=== PATIENT | female | born 1985 | race African-American/Black ===

== ENCOUNTER 2019-03-31 08:18 | Inpatient (IN) | payer SELFPAY ==
[~2019-03-31] VITALS: Ht 160 cm; Wt 90.7 kg
[2019-03-31 09:17] LABS: BASOPHILS 0.3 % (0-2); EOSINOPHILS 1.2 % (0-7); HEMATOCRIT 37.5 % (36.0-48.0); HEMOGLOBIN 12.1 g/dL (12-16); IMMATURE GRANULOCYTES 0.3 % (0-5); LYMPHOCYTES 27.8 % (15-50); MCH 27.8 pg (26.0-34.0); MCHC 32.3 g/dL (31.0-37.0); MONOCYTES 7.6 % (2-11); NEUTROPHILS 62.8 % (40-80); PLATELET COUNT 345 10x3/uL (130-400); RBC 4.36 10x6/uL (4.00-5.40); RDW 13.3 % (11.5-14.5); WBC 11.9 10x3/uL (4.8-10.8)
[2019-03-31 09:20] LABS: APPEARANCE CLEAR (CLEAR); COLOR YELLOW (YELLOW); SPECIFIC GRAVITY 1.015 (1.005-1.020)
[2019-03-31 09:21] LABS: BILIRUBIN NEGATIVE (NEGATIVE); GLUCOSE NEGATIVE (NEGATIVE); KETONE NEGATIVE (NEGATIVE); NITRITE NEGATIVE (NEGATIVE); PROTEIN 3+ mg/dL (NEGATIVE); UROBILINOGEN NORMAL (NORMAL)
[2019-03-31 09:23] LABS: BACTERIA FEW /hpf (NEGATIVE); EPITHELIAL CELLS 0-5 /hpf (0-5); RED CELLS - URINE 0-5 /hpf (0-5); WHITE CELLS - URINE 0-5 /hpf (NEGATIVE)
[2019-03-31 09:28] LABS: CALC OSMOLALITY 279 mosm/kg (275-300); CALCIUM 8.5 mg/dL (8.5-10.1); CARBON DIOXIDE 28.5 mmol/L (21.0-32.0); CHLORIDE - SERUM 101 mmol/L (98-107); CREATININE - SERUM 0.8 mg/dL (0.6-1.3); GLUCOSE 109 mg/dL (74-106); POTASSIUM - SERUM 3.5 mmol/L (3.5-5.1); SODIUM 139 mmol/L (136-145); UREA NITROGEN 14 mg/dL (7-18); eGFR NON AFRICAN AMERICAN 86 mL/min (90-120)
[2019-03-31 09:29] LABS: HCG SERUM NEGATIVE (NEGATIVE)
[2019-03-31 09:45] LABS: ALBUMIN 3.6 g/dL (3.4-5.0); ALKALINE PHOSPHATASE 62 U/L (46-116); ALT (SGPT) 162 U/L (10-68); AMYLASE - SERUM 27 U/L (25-115); BILIRUBIN - TOTAL 0.54 mg/dL (0.2-1.3); LIPASE 65 U/L (73-393); PROTEIN - SERUM 6.6 g/dL (6.4-8.2)
--- NOTE | 2019-03-31 10:00 | NUR ---
PATIENT UPDATED ON PLAN OF CARE. NO NEEDS NOTED. WILL CONTINUE TO MONITOR
[2019-03-31 11:00] LABS: CKMB 1.6 U/L (0.0-3.6); CREATINE KINASE 242 UL (21-215); TROPONIN-I 0.035 ng/mL (0.000-0.060)
--- NOTE | 2019-03-31 11:55 | NUR ---
ULTRASOUND AT PATIENT'S BEDSIDE.
--- NOTE | 2019-03-31 12:45 | NUR ---
NEW PATIENT ADMIT FROM ER VIA WC. PATIENT IS ACCOMPANIED BY HOSPITAL STAFF AND FAMILY MEMBERS. PATIENT HAS IV TO L WRIST 22 G WITH ZITHROMAX INFUSING. PATIENT DENIES ANY NEEDS OR PAIN. ASSESSMENT COMPLETED . RAJESH DAY IN ROOM NEW ORDERS RECEIVED. WILL CONTINUE WITH PLAN OF CARE. SR UP X 2 BED IN LOW POSITION AND CALL LIGHT IN REACH.
[2019-03-31 13:13] VITALS: BP 165/112; BMI 35.5
[2019-03-31] MEDS ORDERED: TRAZODONE HCL150 MG PO (13:48)
[2019-03-31 14:13] LABS: CHOL - HDL RATIO 6.9 ratio (2.3-4.1); LDL-HDL RATIO 4.6 ratio (1.5-3.5)
--- NOTE | 2019-03-31 15:01 | NUR ---
PATIENT RESTING COMFORTABLY. WILL CONTINUE TO MONITOR.
--- NOTE | 2019-03-31 19:35 | NUR ---
RECEIVED REPORT, WILL ASSUME CARE OF PT, DR. JOHNSON IN ROOM, PT DENIES ANY NEEDS AT THIS TIME, BED IS LOW, CALL LIGHT IN REACH, WILL CONTINUE PLAN OF CARE
[2019-03-31 20:00] VITALS: BP 151/104
[2019-04-01] VITALS: BP 114/76
--- NOTE | 2019-04-01 03:05 | NUR ---
I have reviewed this patient and I concur with the Shift Assessment completed by the Licensed Practical Nurse today this shift.
[2019-04-01 04:00] VITALS: BP 140/86
[2019-04-01 05:58] LABS: ALBUMIN 3.2 g/dL (3.4-5.0); ALKALINE PHOSPHATASE 53 U/L (46-116); ALT (SGPT) 147 U/L (10-68); BILIRUBIN - TOTAL 0.47 mg/dL (0.2-1.3); CARBON DIOXIDE 27.5 mmol/L (21.0-32.0); CHLORIDE - SERUM 103 mmol/L (98-107); CREATININE - SERUM 0.7 mg/dL (0.6-1.3); POTASSIUM - SERUM 3.8 mmol/L (3.5-5.1); PROTEIN - SERUM 6.3 g/dL (6.4-8.2); SODIUM 139 mmol/L (136-145); UREA NITROGEN 11 mg/dL (7-18); eGFR NON AFRICAN AMERICAN > 90 mL/min (90-120)
[2019-04-01 06:00] LABS: CALC OSMOLALITY 280 mosm/kg (275-300); GLUCOSE 169 mg/dL (74-106)
[2019-04-01 06:06] LABS: BASOPHILS 0.1 % (0-2); EOSINOPHILS 0 % (0-7); HEMATOCRIT 36.8 % (36.0-48.0); HEMOGLOBIN 11.8 g/dL (12-16); IMMATURE GRANULOCYTES 0.4 % (0-5); LYMPHOCYTES 17.2 % (15-50); MCH 27.9 pg (26.0-34.0); MCHC 32.1 g/dL (31.0-37.0); MEAN PLATELET VOLUME 10.5 fL (7.4-10.4); MONOCYTES 4.3 % (2-11); PLATELET COUNT 359 10x3/uL (130-400); RBC 4.23 10x6/uL (4.00-5.40); RDW 13.7 % (11.5-14.5); WBC 13.5 10x3/uL (4.8-10.8)
--- NOTE | 2019-04-01 07:14 | NUR ---
REPORT RECEVEDE FROM MANAGER PLANNING AND PATIENT CARE ASSUMED. PATIENT LAYING IN BED ON BACK AWAKE, ALERT AND ORIENTED X 4. PATIENT DENIES ANY NEEDS OR PAIN. FAMILY AT BS,. WILL CONTINUE TO MONITOR. SR UP X 2 BED IN LOW POSITION AND CALL LIGHT IN REACH.
[2019-04-01 09:04] VITALS: BP 156/104
--- NOTE | 2019-04-01 11:30 | NUR ---
IV INFILLTRATED. DCD IV WITHOUT DIFFICULTY WITH ENTIRE CATHETER INTACT. DRSG APPLIED
--- NOTE | 2019-04-01 13:03 | NUR ---
22 GAUGE IV PLACED TO RIGHT HAND X 1 STICK. GOOD BLOOD RETURN, EASY FLUSH. PATIENT TOLERATED IV PLACEMENT WELL. TAPED, DATED AND SECURED.
[2019-04-01 14:10] VITALS: BP 128/83
--- NOTE | 2019-04-01 15:52 | NUR ---
CALLED TO PATIENTS ROOM. SPOKE WITH FAMILY MEMBERS AND PATIENT. ANSWERED QUESTIONS TO SATISFACTION OF PATIENT AND FAMILY MEMBERS. PATIENT DENIES ANY NEEDS OR PAIN. WILL CONTINUE TO MONITOR. SR UP X 2 BED IN LOW POSITION AND CALL LIGHT IN REACH.
--- NOTE | 2019-04-01 17:45 | NUR ---
PATIENT RESTING COMFORTABLY. PATIENT IS STABLE AND VSS. WILL CONTINUE TO MONITOR. SR UP X 2 BED IN LOW POSITION AND CALL LIGHT IN REACH.
--- NOTE | 2019-04-01 19:26 | NUR ---
INITIAL ROUNDS COMPLETED. PT DORA NAYLOR. FAMILY AT BEDSIDE.
[2019-04-01 20:00] VITALS: BP 128/92
--- NOTE | 2019-04-01 22:23 | NUR ---
ASSESSMENT COMPLETED AT 1955 HRS. VSS. SR PER CMHR 100. ALERT AND ORIENTED TO PERSON, PLACE AND TIME. VALVERDE. IV TO R HAND SL. LUNGS DIMINISHED IN BASES BILAT. TYENOL 650MG PO GIVEN FOR C/O GENERALIZED DISCOMFORT. PT CURRENTLY RESTING WITH EYES CLOSED. RESP EVEN AND REGULAR. SR UP X2, CALL LIGHT WITHIN REACH.
[2019-04-01 23:00] VITALS: BP 120/72
--- NOTE | 2019-04-01 23:50 | NUR ---
PT RESTING WITH EYES CLOSED. RESP EVEN AND REGULAR. SR UP X2, CALL LIGHT WITHIN REACH.
--- NOTE | 2019-04-02 01:46 | NUR ---
PT RESTING WITH EYES CLOSED. RESP EVEN AND REGULAR. SR UP X2, CALL LIGHT WITHIN REACH AND SPOUSE AT BEDSIDE.
--- NOTE | 2019-04-02 03:12 | NUR ---
PT RESTING WITH EYES CLOSED. RESP EVEN AND REGULAR. SR UP X2, CALL LIGHT WITHIN REACH.
[2019-04-02 04:00] VITALS: BP 123/89
[2019-04-02 05:07] LABS: BASOPHILS 0.2 % (0-2); HEMATOCRIT 37.4 % (36.0-48.0); HEMOGLOBIN 11.8 g/dL (12-16); IMMATURE GRANULOCYTES 0.3 % (0-5); LYMPHOCYTES 33.4 % (15-50); MCH 27.7 pg (26.0-34.0); MCHC 31.6 g/dL (31.0-37.0); MCV 87.8 fL (80.0-100.0); MEAN PLATELET VOLUME 10.4 fL (7.4-10.4); MONOCYTES 7.9 % (2-11); NEUTROPHILS 56.2 % (40-80); PLATELET COUNT 324 10x3/uL (130-400); RBC 4.26 10x6/uL (4.00-5.40); RDW 13.9 % (11.5-14.5); WBC 12.7 10x3/uL (4.8-10.8)
--- NOTE | 2019-04-02 05:12 | NUR ---
TYLENOL 650MG PO GIVEN FORC/O BACK PAIN. VS THROUGHOUT NIGHT. SR/ST PER CM. PT RESTED WELL DURING SHIDT NEEDS MET; WILL CONTNUE TO MONITOR.
[2019-04-02 05:45] LABS: ALKALINE PHOSPHATASE 52 U/L (46-116); BILIRUBIN - TOTAL 0.33 mg/dL (0.2-1.3); CARBON DIOXIDE 28.1 mmol/L (21.0-32.0); CHLORIDE - SERUM 102 mmol/L (98-107); CREATININE - SERUM 0.8 mg/dL (0.6-1.3); GLUCOSE 127 mg/dL (74-106); POTASSIUM - SERUM 3.6 mmol/L (3.5-5.1); SODIUM 138 mmol/L (136-145); eGFR NON AFRICAN AMERICAN 86 mL/min (90-120)
[2019-04-02 05:48] LABS: ALT (SGPT) 198 U/L (10-68); CALC OSMOLALITY 279 mosm/kg (275-300); UREA NITROGEN 18 mg/dL (7-18)
--- NOTE | 2019-04-02 07:10 | NUR ---
RECIEVE REPORT. ALERT AND ORIENTED X4. SITTING UP IN BED. SCDs ON. SINUS RYTHM 98 ON TELEMETRY. DENIES ANY NEEDS AT THIS TIME. CONTINUE PLAN OF CARE AND SAFETY PRECAUTIONS.
[2019-04-02 08:45] VITALS: BP 134/102
[2019-04-02 13:09] VITALS: BP 111/77
--- NOTE | 2019-04-02 17:48 | NUR ---
ALERT AND ORIENTED X4. SITTING UP IN BED. FAMILY AT BEDSIDE. SINUS RYTHM ON TELEMETRY. DENIES ANY NEEDS AT THIS TIME. CONTINUE PLAN OF CARE AND SAFETY PRECAUTIONS.
[2019-04-02 17:57] VITALS: BP 118/73
--- NOTE | 2019-04-02 19:20 | NUR ---
RECEIVED REPORT, WILL ASSUME CARE OF PT, DENIES ANY NEEDS, BED IS LOW, SRX2, CALL LIGHT IN REACH, FAMILY AT BEDSIDE, WILL CONTINUE PLAN OF CARE
[2019-04-02 20:00] VITALS: BP 104/76
[2019-04-03 00:23] VITALS: BP 134/74
--- NOTE | 2019-04-03 02:54 | NUR ---
I have reviewed this patient and I concur with the Shift Assessment completed by the Licensed Practical Nurse today this shift.
[2019-04-03 04:00] VITALS: BP 111/81
[2019-04-03 06:34] LABS: BASOPHILS 0.2 % (0-2); EOSINOPHILS 2.6 % (0-7); HEMATOCRIT 38.1 % (36.0-48.0); HEMOGLOBIN 12.1 g/dL (12-16); IMMATURE GRANULOCYTES 0.2 % (0-5); LYMPHOCYTES 37.5 % (15-50); MCH 27.8 pg (26.0-34.0); MCHC 31.8 g/dL (31.0-37.0); MCV 87.4 fL (80.0-100.0); MEAN PLATELET VOLUME 10.8 fL (7.4-10.4); MONOCYTES 10.9 % (2-11); NEUTROPHILS 48.6 % (40-80); PLATELET COUNT 341 10x3/uL (130-400); RBC 4.36 10x6/uL (4.00-5.40); RDW 13.8 % (11.5-14.5); WBC 12.2 10x3/uL (4.8-10.8)
[2019-04-03 06:47] LABS: ALKALINE PHOSPHATASE 49 U/L (46-116); ALT (SGPT) 175 U/L (10-68); BILIRUBIN - TOTAL 0.22 mg/dL (0.2-1.3); CALC OSMOLALITY 279 mosm/kg (275-300); CALCIUM 8.3 mg/dL (8.5-10.1); CHLORIDE - SERUM 103 mmol/L (98-107); CREATININE - SERUM 0.8 mg/dL (0.6-1.3); GLUCOSE 124 mg/dL (74-106); MAGNESIUM - SERUM 2.1 mg/dL (1.8-2.4); POTASSIUM - SERUM 3.4 mmol/L (3.5-5.1); PROTEIN - SERUM 5.9 g/dL (6.4-8.2); SODIUM 139 mmol/L (136-145); UREA NITROGEN 15 mg/dL (7-18); eGFR NON AFRICAN AMERICAN 86 mL/min (90-120)
[2019-04-03 10:35] VITALS: BP 132/103
[2019-04-03 12:47] VITALS: BP 102/68
[2019-04-03 15:03] VITALS: Ht 160 cm; Wt 90.7 kg
[2019-04-03] MEDS ORDERED: ZITHROMAX500 MG PO (15:03)
[2019-04-03] MEDS ORDERED: OMNICEF300 MG PO (15:03)
[2019-04-03] MEDS ORDERED: LISINOPRIL10 MG PO (15:04)
[2019-04-03] MEDS ORDERED: COREG12.5 MG PO (15:04)
[2019-04-03] MEDS ORDERED: PROTONIX40 MG PO (15:04)
[2019-04-03] MEDS ORDERED: LASIX40 MG PO (15:04)
[2019-04-03] MEDS ORDERED: K-DUR20 MEQ PO (15:05)
[2019-04-03] MEDS ORDERED: PRAVACHOL20 MG PO (15:05)
--- NOTE | 2019-04-03 15:25 | NUR ---
NO FLU SHOT GIVEN PATIENT WAS ADMITTED FOR PNEUMONIA AND GOING HOME ON ORAL ANTIBIOTICS.
[2019-04-03 16:40] VITALS: BP 121/85
--- NOTE | 2019-04-03 17:01 | NUR ---
ALERT AND ORIENTED X4. SITTING UP IN BED. WAITING FOR WALK STUDY EVAL TO BE DONE. DENIES ANY NEEDS AT THIS TIME. CONTINUE PLAN OF CARE AND SAFETY PRECAUTIONS.
--- NOTE | 2019-04-03 17:02 | MORECARE ---
CASE MANAGEMENT DISCHARGE SUMMARY PATIENT: NICKOLAS THOMAS UNIT: [id number] ADM DATE: 03/31/19 AGE: 34 : [birth year] SEX: F ROOM/BED: D.9648 AUTHOR: JOSE F HILTON PHYSICIAN: REFERRING PHYSICIAN: LUCRECIA MURRIETA DO DATE OF SERVICE: 04/03/19 Discharge Plan Patient Name: NICKOLAS THOMAS [facility] [facility] 1985 Planned Disposition: Home Anticipated Discharge Date: 04/04/19 Discharge Date: Expected LOS: 4 Initial Reviewer: [email or web address] Initial Review Date: 03/31/2019 Generated: 04/03/19 6:02 pm DCPIA - Discharge Planning Initial Assessment Updated by [email or web address]: Bobby Best on 04/03/19 5:01 pm * Is the patient Alert and Oriented? Yes * How many steps to enter\exit or inside your home? * PCP NONE, [facility] REF[facility] * [facility] DISCOUNT CARD PROVIDED * Preadmission Environment Home with Family * ADLs Independent * Equipment None * Other Equipment NO MEDICAL EQUIPMENT PROVIDER PREFERENCE * List name and contact numbers for known caregivers / representatives who currently or will assist patient after discharge: PAPO THOMAS, SPOUSE, * Verbal permission to speak to the caregivers and representatives has been obtained from the patient. N/A * Community resources currently utilized None * Please name any agencies selected above. NONE * Additional services required to return to the preadmission environment? No * Can the patient safely return to the preadmission environment? Yes * Has this patient been hospitalized within the prior 30 days at any hospital? No Patient Name: NICKOLAS THOMAS Page [phone] at 1702 All edits/amendments must be made on the electronic document DICTATION DATE: 04/03/191701 HAIRSPRING SETTER: KATHERINE 04/03/191701 RPT#: [id number] DC DATE: STATUS: ADM IN [facility] [address] [place] [address] END OF REPORT
--- NOTE | 2019-04-03 17:11 | MORECARE ---
CASE MANAGEMENT DISCHARGE SUMMARY PATIENT: NICKOLAS THOMAS UNIT: [id number] ADM DATE: 03/31/19 AGE: 34 : 84 SEX: F ROOM/BED: D.3092 AUTHOR: LIDA,DOC PHYSICIAN: REFERRING PHYSICIAN: LUCRECIA MURRIETA DO DATE OF SERVICE: 04/03/19 Discharge Plan Patient Name: NICKOLAS THOMAS Facility: [facility]:[place] : 1985 Planned Disposition: Home Anticipated Discharge Date: 04/04/19 Discharge Date: Expected LOS: 4 Initial Reviewer: [email or web address] Initial Review Date: 03/31/2019 Generated: 04/03/19 6:11 pm Comments DCP- Discharge Planning Updated by [email or web address]: Bobby Best on 04/03/19 4:[address] Patient Name: NICKOLAS THOMAS Admission Status: ER Accout number: [id number] Admission Date: 03-31-2019 : 1985 Admission Diagnosis: Attending: LUCRECIA MURRIETA Current LOS: 3 Anticipated DC Date: 04-04-2019 Planned Disposition: Home Primary Insurance: UNINSURED DISCOUNT PLAN Discharge Planning Comments: CM MET WITH PT IN ROOM TO DISCUSS DISCHARGE PLANNING AND NEEDS. PT REPORTS LIVING AT HOME INDEPENDENTLY WITH HER SPOUSE. PT HAS NO MEDICAL EQUIPMENT AND NO OUTSIDE SERVICES ASSISTING IN THE HOME. CM DISCUSSED AVAILABILITY OF HOME HEALTH, REHAB SERVICES AND MEDICAL EQUIPMENT. PT DENIES DISCHARGE NEEDS, REPORTS HER SPOUSE WILL PICK HER UP FOR DISCHARGE HOME TODAY. PT HAS MET WITH [employer] AND WAS INFORMED SHE WAS OVER INCOME FOR MEDICAID. CM DISCUSSED HEALTHCARE.GOV / AFFORDABLE HEALTHCARE FOR INSURANCE EXPLORATION. [facility] REFERRED FOR PRIMARY CARE. CM PROVIDED LIST FOR [facility] MEDICATION[facility] AND [facility] CARD. CM NOTIFIED CAREER COORDINATOR NURSE. CM LATER INFORMED THAT PT HAS ORDER FOR HOME AND PORTABLE OXYGEN. CM REVIEWED CHART, OBTAINED ORDER FOR OXYGEN TESTING, NOTIFIED RESPIRATORY THERAPIST DEANDRE VIA PHONE. PT SIGNED CONSENT FOR NO PROVIDER PREFERENCE. CM CALLED [facility], [facility] AND [facility]. CM DISCUSSED WITH PT WHO ASKED ABOUT PRICES. CM PROVIDED PRICES: - [facility] WILL NOT DO SALDIVAR OXYGEN SET UP. - [facility] $172.65 HOME AND PORTABLE, CREDIT OR DEBIT CARD - [facility] $60 CONCENTRATOR, $5 PER PORTABLE AND $100 REFUNDABLE DEPOSIT, SALDIVAR OR CARD - [facility] $50 CONCENTRATOR, $10 PER PORTABLE, CREDIT OR DEBIT CARD CM PROVIDED COSTS INFORMATION TO PT WHO WILL DISCUSS WITH FAMILY REGARDING COSTS. CM WAITING OXYGEN TESTING RESULTS TO DETERMINE NEED AND FOR PT TO DECIDE IF SHE WILL PAY FOR OXYGEN WELL PROVIDER CHOICE. CM NOTIFIED ER CM YODER. MAXILLOFACIAL PROSTHODONTIST TO NOTIFY ER CM WHEN OXYGEN TESTING IS COMPLETED. Webbing Weaver: Bobby Best DCPIA - Discharge Planning Initial Assessment Updated by [email or web address]: Bobby Best on 04/03/19 5:01 pm * Is the patient Alert and Oriented? Yes * How many steps to enter\exit or inside your home? * PCP NONE, [facility] REF[facility] * [facility] DIS[facility] C[facility] PROVIDED * Preadmission Environment Home with Family * ADLs Independent * Equipment None * Other Equipment NO MEDICAL EQUIPMENT PROVIDER PREFERENCE * List name and contact numbers for known caregivers / representatives who currently or will assist patient after discharge: PAPO THOMAS, SPOUSE, * Verbal permission to speak to the caregivers and representatives has been obtained from the patient. N/A * Community resources currently utilized None * Please name any agencies selected above. NONE * Additional services required to return to the preadmission environment? No * Can the patient safely return to the preadmission environment? Yes * Has this patient been hospitalized within the prior 30 days at any hospital? No Coverage Notice Reviewer: [id number] - Bobby Best Notice Issued Date-Time: 04/03/2019 16:10 Notice Type: Patient Choice Letter Notice Delivered To: Patient Relationship to Patient: Production Leader Name: Delivery Method: HAND - Hand Delivered Carley Days: Prior Verbal Notification: Recipient Understood Notice: Yes Recipient Signature: Yes Med Rec Note Co-signed by Attending: Coverage Notice Comment: NO MEDICAL EQUIPMENT PROVIDER PREFERENCE Last DP export: 04/03/19 4:02 p Patient Name: NICKOLAS THOMAS Page [phone] at 1711 All edits/amendments must be made on the electronic document DICTATION DATE: 04/03/191710 POLICE STENOGRAPHER: KATHERINE 04/03/191710 RPT#: [id number] DC DATE: STATUS: ADM IN [facility] [address] [place] [id number] END OF REPORT
--- NOTE | 2019-04-03 19:00 | NUR ---
EVENING ROUNDS COMPLETE. PT SITTING UP IN BED. AAOX4. NO SIGNS OF DISTRESS. PT DENIES ANY NEEDS OR PAIN AT THIS TIME. CL IN REACH, BED IN LOWEST POSITION.
--- NOTE | 2019-04-04 08:50 | MORECARE ---
CASE MANAGEMENT DISCHARGE SUMMARY PATIENT: NICKOLAS THOMAS UNIT: [id number] ADM DATE: 03/31/19 AGE: 34 : [birth year] SEX: F ROOM/BED: D.2628 AUTHOR: JOSE F HILTON PHYSICIAN: REFERRING PHYSICIAN: LUCRECIA MURRIETA DO DATE OF SERVICE: 04/04/19 Discharge Plan Patient Name: NICKOLAS THOMAS Facility: [facility]:[place] : 1985 Planned Disposition: Home Anticipated Discharge Date: 04/03/19 Discharge Date: 04/03/2019 Expected LOS: 3 Initial Reviewer: [email or web address] Initial Review Date: 03/31/2019 Generated: 04/04/19 9:50 am Comments DCP- Discharge Planning Updated by [email or web address]: Bobby Best on 04/03/19 4:[address] Patient Name: NICKOLAS THOMAS Admission Status: ER Accout number: [id number] Admission Date: 03-31-2019 : 1985 Admission Diagnosis: Attending: LUCRECIA MURRIETA Current LOS: 3 Anticipated DC Date: 04-04-2019 Planned Disposition: Home Primary Insurance: UNINSURED DISCOUNT PLAN Discharge Planning Comments: CM MET WITH PT IN ROOM TO DISCUSS DISCHARGE PLANNING AND NEEDS. PT REPORTS LIVING AT HOME INDEPENDENTLY WITH HER SPOUSE. PT HAS NO MEDICAL EQUIPMENT AND NO OUTSIDE SERVICES ASSISTING IN THE HOME. CM DISCUSSED AVAILABILITY OF HOME HEALTH, REHAB SERVICES AND MEDICAL EQUIPMENT. PT DENIES DISCHARGE NEEDS, REPORTS HER SPOUSE WILL PICK HER UP FOR DISCHARGE HOME TODAY. PT HAS MET WITH [employer] AND WAS INFORMED SHE WAS OVER INCOME FOR MEDICAID. CM DISCUSSED HEALTHCARE.GOV / AFFORDABLE HEALTHCARE FOR INSURANCE EXPLORATION. [facility] REFERRED FOR PRIMARY CARE. CM PROVIDED LIST FOR [facility] MEDICATION[facility] AND [facility] C[facility]. CM NOTIFIED STUDENT ASSISTANCE COUNSELOR NURSE. CM LATER INFORMED THAT PT HAS ORDER FOR HOME AND PORTABLE OXYGEN. CM REVIEWED CHART, OBTAINED ORDER FOR OXYGEN TESTING, NOTIFIED RESPIRATORY THERAPIST DEANDRE VIA PHONE. PT SIGNED CONSENT FOR NO PROVIDER PREFERENCE. CM CALLED [facility], [facility], [facility] AND [facility]. CM DISCUSSED WITH PT WHO ASKED ABOUT PRICES. CM PROVIDED PRICES: - [facility] PAT[facility] WILL NOT DO SALDIVAR OXYGEN SET UP. - [facility] $172.65 HOME AND PORTABLE, CREDIT OR DEBIT CARD - [facility] $60 CONCENTRATOR, $5 PER PORTABLE AND $100 REFUNDABLE DEPOSIT, SALDIVAR OR CARD - [facility] $50 CONCENTRATOR, $10 PER PORTABLE, CREDIT OR DEBIT CARD CM PROVIDED COSTS INFORMATION TO PT WHO WILL DISCUSS WITH FAMILY REGARDING COSTS. CM WAITING OXYGEN TESTING RESULTS TO DETERMINE NEED AND FOR PT TO DECIDE IF SHE WILL PAY FOR OXYGEN WELL PROVIDER CHOICE. CM NOTIFIED ER CM YODER. HELMINTHOLOGY TEACHER TO NOTIFY ER CM WHEN OXYGEN TESTING IS COMPLETED. Farm Mortgage Agent: Bobby Best DCPIA - Discharge Planning Initial Assessment Updated by [id number]: Bobby Best on 04/03/19 5:01 pm * Is the patient Alert and Oriented? Yes * How many steps to enter\exit or inside your home? * PCP NONE, [facility] REFERR[facility] * [facility] DISCOUNT CARD PROVIDED * Preadmission Environment Home with Family * ADLs Independent * Equipment None * Other Equipment NO MEDICAL EQUIPMENT PROVIDER PREFERENCE * List name and contact numbers for known caregivers / representatives who currently or will assist patient after discharge: PAPO THOMAS, SPOUSE, * Verbal permission to speak to the caregivers and representatives has been obtained from the patient. N/A * Community resources currently utilized None * Please name any agencies selected above. NONE * Additional services required to return to the preadmission environment? No * Can the patient safely return to the preadmission environment? Yes * Has this patient been hospitalized within the prior 30 days at any hospital? No Coverage Notice Reviewer: [id number] - Bobby Best Notice Issued Date-Time: 04/03/2019 16:10 Notice Type: Patient Choice Letter Notice Delivered To: Patient Relationship to Patient: Urban Redevelopment Specialist Name: Delivery Method: HAND - Hand Delivered Carley Days: Prior Verbal Notification: Recipient Understood Notice: Yes Recipient Signature: Yes Med Rec Note Co-signed by Attending: Coverage Notice Comment: NO MEDICAL EQUIPMENT PROVIDER PREFERENCE Last DP export: 04/03/19 4:11 p Patient Name: NICKOLAS THOMAS Page [phone] at 0850 All edits/amendments must be made on the electronic document DICTATION DATE: 04/04/19 0850 MULTICRAFT OPERATOR: KATHERINE 04/04/19 0850 RPT#: [id number] DC DATE:04/03/19 STATUS: DIS IN [facility] [address] [place] [address] END OF REPORT
--- NOTE | 2019-04-05 14:07 | EC ---
PATIENT:NICKOLAS THOMAS DATE OF SERVICE: 03/31/19 SEX: F MEDICAL RECORD: [id number] DATE OF : [birth year] LOCATION:D.M2 D.212 AGE OF PATIENT: 34 ADMISSION DATE: 03/31/19 REFERRING PHYSICIAN: INTERPRETING PHYSICIAN: OLIVIER VARGAS MD ECHOCARDIOGRAM REPORT ECHO CHARGES 4 ECHO COMPLETE Date: 03/31/19 CLINICAL DIAGNOSIS: ELEVATED BNP,SOB/CHEST PAIN ECHOCARDIOGRAPHIC MEASUREMENTS (adult normal given) AC root (d.<3.7cm) 2.1 cm LV Septum d (<1.2 cm> 1.0 cm Valve Excursion 1.1 cm LV Septum (systole) 1.2 cm Left Atria (s.<4.0cm> 4.9 cm LVPW d(<1.2cm) 1.1 cm RV (d.<2.3cm) 4.7 cm LVPW (sytole) 1.5 cm LV diastole(<5.6CM) 6.5 cm MV E-F(>70mm/sec) cm LV systole 5.3 cm LVOT Diameter 2.0 cm MV exc.(>10mm) 1.5 cm Est.ejection fraction (50-75%) % DOPPLER: LVIT cm/sec A cm/sec E 86.0 cm/sec LA cm/sec RVSP 53 mmHg LVOT 81 cm/sec AOP1/2T m/s Asc. Ao 91 cm/sec RVOT 46 cm/sec RA cm/sec PA 82 cm/sec AV Gradient Peak 3.33 mmHg AV Mean 1.86 mmHg AV Area 2.7 cm MV Gradient Peak 5.05 mmHg MV Mean 1.80 mmHg MV Area cm COMMENTS: Cadd Technician: Mukund LOMAX Profiler: 1 Dr. Vargas TAPE# PACS Pericardial Effusion N DATE OF SERVICE: 03/31/2019 FINDINGS: 1. Left ventricular chamber is moderately dilated. Left ventricular systolic function is moderately reduced, overall ejection fraction 30% to 35%. 2. Left atrium, right atrium, and right ventricular chamber sizes are dilated giving 4-chamber dilatation. 3. Valvular structures have normal structure and motion. 4. Doppler interrogation reveals mild mitral regurgitation, severe tricuspid regurgitation, no other valvular insufficiency or stenosis. Pulmonary systolic ECHOCARDIOGRAM REPORT [id number] NICKOLAS THOMAS pressure is elevated, estimated at 53 mmHg. 5. No evidence of pericardial effusion or left ventricular thrombus. TRANSINT:[id number] Voice Confirmation ID: [id number] DOCUMENT ID: [id number] OLIVIER VARGAS MD at 1407 CC: [id number] DICTATION DATE: 03/31/19 1511 ASSET SPECIALIST: 03/31/19 1700 DIS IN 04/03/19 [place] [id number] [place] [id number]
--- NOTE | 2019-04-05 14:07 | CN ---
PATIENT NAME:NICKOLAS THOMAS MEDICAL RECORD: [id number] : [birth year] LOCATION:. D.2127 ADMIT DATE: 03/31/19 ACCOUNT: [id number] CONSULTING PHYSICIAN: OLIVIER HENDERSON MD REFERRING PHYSICIAN: LUCRECIA MURRIETA DO DATE OF CONSULTATION: 03/31/2019 CARDIOLOGY CONSULTATION DIAGNOSES: 1. Shortness of breath, dyspnea on exertion. 2. Chest pain. 3. Cardiomyopathy. 4. Congestive heart failure with chronic systolic dysfunction. 5. Hypertension. 6. Hyperlipidemia. HISTORY OF PRESENT ILLNESS: Mrs. Thomas presents with shortness of breath, dyspnea on exertion and some chest pain. She was told in the past that she should be on blood pressure medication. She has not been taking any blood pressure medications. She also was told that she should take hyperlipidemia medications for her hyperlipidemia. She is not on these medications. She presents today with shortness of breath. Echocardiogram reveals an ejection fraction in the 30% to 35% range. PHYSICAL EXAMINATION: CONSTITUTIONAL/GENERAL APPEARANCE: Well nourished, well developed, appears stated age. EYES: Lids and conjunctivae noninjected. No discharge. No pallor. ENT: Lips within normal limit. No cyanosis. No pallor. NECK: Carotid arteries, bilateral normal upstroke. No bruits. No thrills. No jugular venous pressure or distention. CERVICAL LYMPH NODES: Nontender. Nonenlarged. THYROID: Not enlarged. No nodules. CARDIOVASCULAR: Precordial exam, nondisplaced. No heaves or pericardial thrills. Rate and rhythm, regular. Heart sounds, normal S1, normal S2. No S3, no gallop, no rub. Systolic murmur, not heard. Diastolic murmur, not heard. RESPIRATORY: Respiratory effort, unlabored. Normal curvature. No thoracic deformity. No chest wall tenderness. Percussion, resonant. Auscultation, clear. No wheezes, no rales, no rhonchi. ABDOMEN: Soft, nondistended, nontender. No abdominal pain, no vomiting and normal appetite. MUSCULOSKELETAL: No joint tenderness, normal gait, normal tone. SKIN: Warm and dry. OVERALL IMPRESSION: Cardiomyopathy secondary to uncontrolled hypertension. At this time, we will start her on carvedilol 12.5 mg b.i.d., lisinopril 20 mg b.i.d., pravastatin 20 mg every day. If her heart rate and blood pressure tolerates this, we can discharge her in the a.m. We will follow up in approximately 1 month in our office. Repeat the echocardiogram in 4-6 months. TRANSINT:[id number] Voice Confirmation ID: [id number] DOCUMENT ID: [id number] CONSULT REPORT [id number] NICKOLAS THOMAS, OLIVIER OLIVERA at 1407 CC: [id number] DICTATION DATE: 03/31/19 1421 SAMPLE HAND: 03/31/19 1529 DIS IN 04/03/19 [place] [id number] [place] [id number]
== END 2019-04-03 20:31 | disposition home or self-care (01) | DRG 291 ==
LOC: D.ER 08:18 → D.M2 10:37
PROVIDERS: Family Medicine; ADMIT Family Medicine; ATTEND Family Medicine
DX: I11.0 Hypertensive heart disease with heart failure (principal); J18.1 Lobar pneumonia, unspecified organism; J98.11 Atelectasis; I50.23 Acute on chronic systolic (congestive) heart failure; I42.9 Cardiomyopathy, unspecified; I20.0 Unstable angina; E78.5 Hyperlipidemia, unspecified; G47.00 Insomnia, unspecified; I08.1 Rheumatic disorders of both mitral and tricuspid valves; J02.9 Acute pharyngitis, unspecified; R19.7 Diarrhea, unspecified; E87.6 Hypokalemia; I27.20 Pulmonary hypertension, unspecified

== ENCOUNTER → 2020-01-03 08:28 | Outpatient (CLI) | payer OTHER, BC ==
[2019-04-03 15:03] VITALS: BMI 35.4
[~2020-01-03 08:28] MED LIST: COREG12.5 MG PO; K-DUR20 MEQ PO; LASIX40 MG PO; LISINOPRIL10 MG PO; OMNICEF300 MG PO; PRAVACHOL20 MG PO; PROTONIX40 MG PO; TRAZODONE HCL150 MG PO; ZITHROMAX500 MG PO
== END | disposition home or self-care (01) ==
LOC: D.HCCARDIO 08:28
PROVIDERS: ATTEND Internal Medicine Cardiovascular Disease
DX: I20.9 Angina pectoris, unspecified (principal)

== ENCOUNTER 2020-01-29 11:08 | Day surgery (SDC) | payer OTHER, BC ==
[~2020-01-29] VITALS: Ht 160 cm; Wt 89.5 kg
--- NOTE | ~2020-01-29 | HEMODYNAMI ---
PATIENT:NICKOLAS THOMAS MEDICAL RECORD: [id number] : 83 LOCATION:[facility] ADMISSION DATE: 01/29/20 Generatedon:01/29/202013:44 Patient name: NICKOLAS THOMAS Patient #: [id number] SSN: [id number] : 1985 Date of study: 01/29/2020 Page: Of Hemodynamic Procedure Report Patient Data Patient Demographics Procedure consent was obtained First Name: NICKOLAS Gender: Female Last Name: MARTHA : 1985 Patient #: [id number] Age: 34 year(s) Race: Black SSN: [id number] Additional ID: [id number] Contact details [address]: [address] [place] [address] State: [place] City: [place] Zip code: [address] Past Medical History Allergies: No known allergies Admission Admission Data Admission Date: 01/29/2020 Admission Time: 11:08 Arrival Date: 01/29/2020 Arrival Time: 0:00 Admit Source: Other Insurance Payor: Private health insurance [facility] #: [id number] Height (in.): 62 BSA: 1.91 (m2) Height (cm.): 157.48 BMI: 36.4 (kg/m2) Weight (lbs.): 199 Weight (kg.): 90.26 Lab Results Lab Result Date: 01/29/2020 Lab Result Time: 0:00 Biochemistry Name Units Result Min Max BUN mg/dl 11 --(-*--)-- 7 18 Creatinine mg/dl 0.6 --(*---)-- 0.6 1.3 eGFR ml/min 90 --(*---)-- 90 120 NONAFRICAN CBC Name Units Result Min Max Hemoglobin g/dl 12.7 -*(----)-- 13.5 17.5 Procedure Procedure Types Cath Procedure Diagnostic Procedure [facility] w/Coronaries Sedation Charges Moderate Sedation up to 30 minutes Procedure Description Procedure Date Procedure Date: 01/29/2020 Procedure Start Time: 13:19 Procedure End Time: 13:43 Procedure Staff Name Function Jose M Huddleston MD Performing Physician Mattie Rojo RT Monitor Annabella Kramer RN Nurse Winnie Zuluaga, RN Nurse Berkley Senior RT Scrub Procedure Data Cath Procedure Fluoroscopy Diagnostic fluoroscopy Total fluoroscopy Time: 5.6 time: 5.6 min min Diagnostic fluoroscopy Total fluoroscopy dose: 581 dose: 581 mGy mGy Contrast Material Contrast Material Type Amount (ml) Isovue 370 70 Entry Location Entry Primary Successful Side Size Upsize Upsize Entry Closure Mcmahon ccessful Closure Location (Fr) 1 (Fr) 2 (Fr) Remarks Device Remarks Radial Right 6 Fr Mechanical artery Short Compression Femoral Right 6 Fr Exoseal artery Short Estimated blood loss: 5 ml Diagnostic catheters Device Type Used For End Catheter Placement DIAGNOSTIC Alireza 110cm Procedure 5Fr catheter ([id number]) DIAGNOSTIC [place] 110cm 5 Procedure Fr catheter (158051) MULTIPACK JL 4.0 5Fr Procedure catheter MULTIPACK 3DRC 5Fr Procedure catheter MULTIPACK Pigtail 5 Fr Procedure catheter Procedure Complications No complications Procedure Medications Medication Administration Route Dosage Oxygen etCO2 Nasal cannula 2 l/min Heparin Flush Bag added to field 2 bags (1000units/500ml NS) Lidocaine 2% added to field 20 0.9% NaCl I.V. 100 ml/hr Fentanyl I.V. 50 mcg Versed I.V. 1 mg Radial Cocktail added to field 1 syringe (Verapamil 2mg/Nitro 400mcg/Heparin 1500units) Radial Cocktail I.A. 1 syringe (Verapamil 2mg/Nitro 400mcg/Heparin 1500units) Fentanyl I.V. 50 mcg Versed I.V. 1 mg Versed I.V. 0.5 mg Hemodynamics Rest BSA: 1.91 (m2) HGB: 12.7 (g/dl) O2 Consumption: Estimated: 197.77 (ml/min) O2 Co nsumption indexed: Estimated:103.54 (ml/min/m) Heart Rate: 69 (bpm) Pressure Samples Time Site Value (mmHg) Purpose Heart Use Rate(bpm) 13:26 LV 123/-8,5 Snapshot 77 13:27 AO 118/79(98) Pullback 102 13:27 LV 106/3,5 Pullback 102 13:38 LV 119/-3,25 Snapshot 84 13:38 AO 110/68(87) Pullback 87 13:38 LV 116/-5,20 Pullback 87 Gradients Valve Time Site 1 Site 2 Mean SEP/DFP Peak To Heart Use (mmHg) (sec/min) Peak Rate (mmHg) (bpm) Aortic 13:27 LV AO 0 13 0 102 106/3,5 118/79(98) Aortic 13:38 LV AO 12 18 6 87 116/-5,20 110/68(87) Calculations Valve P-P Mean Valve Index Valve Source Name Gradient Area Flow (cm2) Aortic 6 12 6 12 Snapshots Pre Cath Intra NCS Post Cath Vital Signs Time Heart Resp SPO2 etCO2 NIBP Rhythm Pain Sedation Rate (ipm) (%) (mmHg) (mmHg) Status Level (bpm) 13:08:22 68 12 98 0 129/77(94) NSR 0 (11) 10(A) , No pain 13:12:40 73 17 96 0 122/72(88) NSR 0 (11) 10(A) , No pain 13:16:58 78 15 97 0 122/67(86) NSR 0 (11) 9(A) , No pain 13:21:14 64 17 98 0 127/69(93) NSR 0 (11) 9(A) , No pain 13:25:32 88 14 99 0 119/71(91) NSR 0 (11) 9(A) , No pain 13:29:46 84 18 100 0 125/68(85) NSR 0 (11) 9(A) , No pain 13:34:06 77 17 100 0 123/63(81) NSR 0 (11) 9(A) , No pain 13:38:26 86 19 99 0 116/62(90) NSR 0 (11) 9(A) , No pain 13:42:41 80 18 0 125/69(82) NSR 0 (11) 9(A) , No pain Medications Time Medication Route Dose Verified Delivered Reason Notes Effectiveness by by 12:54:05 Oxygen etCO2 2 l/min Winnie Winnie used for Nasal Zuluaga, Zuluaga, procedure cannula RN RN 12:54:14 Heparin Flush added 2 bags Winnie Winnie used for Bag to Zuluaga, Zuluaga, procedure (1000units/500ml field RN RN NS) 12:54:25 Lidocaine 2% added 20ml Winnie Jose M for local to vial Zuluaga, Huddleston MD anesthetic field RN 12:54:37 0.9% NaCl I.V. 100 Winnie Winnie Per ml/hr Margareth Zuluaga, physician RN RN 13:13:14 Fentanyl I.V. 50 mcg Winnie Winnie for sedation Margareth Zuluaga, RN RN 13:13:19 Versed I.V. 1 mg Winnie Winnie for sedation Margareth Zuluaga, HEAVENLY RN 13:16:39 Radial Cocktail added 1 Winnie Winnie for (Verapamil to syringe Margareth Zuluaga, vasodilation 2mg/Nitro field RN RN 400mcg/Heparin 1500units) 13:22:10 Radial Cocktail I.A. 1 Winnie Jose M for (Verapamil syringe Flaquito Zuluaga MD vasodilation 2mg/Nitro RN 400mcg/Heparin 1500units) 13:22:16 Fentanyl I.V. 50 mcg Winnie Winnie for sedation Margareth Zuluaga, RN HEAVENLY 13:22:20 Versed I.V. 1 mg Winnie Winnie for sedation Margareth Zuluaga RN RN 13:35:17 Versed I.V. 0.5 mg Winnie Winnie for sedation Margareth Zuluaga, RN parts sales counterperson Log Time Note 12:49:01 Arrival Date: 01/29/2020 12:00:00 AM 12:49:15 Admit Source: Other 12:49:23 Insurance Payor : Private health insurance 12:49:29 Patient Height : 62 inches 12:49:44 Patient Weight : 199 lbs 12:52:04 Lab Result : BUN 11 mg/dl 12:52:04 Lab Result : Hemoglobin 12.7 g/dl 12:52:04 Lab Result : eGFR NONAFRICAN 90 ml/min 12:52:04 Lab Result : Creatinine 0.6 mg/dl 12:52:37 Procedure Status Elective Heart Cath (OP). 12:52:39 Mattie Rojo RT(R) sent for patient. Start room use. 12:52:52 Time tracking: Regular hours (M-F 7:00 - 5:00) 12:52:56 Plan of Care:Hemodynamics will remain stable., Cardiac rhythm will remain stable., Comfort level will be maintained., Respiratory function will remain adequate., Patient/ family verbilizes understanding of procedure., Procedure tolerated without complication., Recovers from procedure without complications.. 12:53:03 Patient received from Pre/Post Procedure Room to CCL 1 Alert and oriented. Tansferred to table in Supine position. 12:54:05 Oxygen 2 l/min etCO2 Nasal cannula was administered by Winnie Zuluaga RN; used for procedure; Verbal order read back and verified. 12:54:14 Heparin Flush Bag (1000units/500ml NS) 2 bags added to field was administered by Winnie Zuluaga RN; used for procedure; Verbal order read back and verified. 12:54:25 Lidocaine 2% 20ml vial added to field was administered by Jose M Huddleston MD; for local anesthetic; Verbal order read back and verified. 12:54:37 0.9% NaCl 100 ml/hr I.V. was administered by Winnie Zuluaga RN; Per physician; Verbal order read back and verified. 12:59:16 Signed procedure consent form obtained from patient. 12:59:19 Warm blankets applied, and barbara hugger turned on for patient comfort. 12:59:19 Correct patient and procedure confirmed by team. 12:59:22 ECG and BP/O2 sat monitors applied to patient. 12:59:36 H&P Date Dictated: 01/29/2020 Within 30 days and on chart.. 12:59:38 Pre-procedure instructions explained to patient. 12:59:41 Family in patients room. 12:59:43 Patient NPO since Midnight. 12:59:51 Patient allergic to No known allergies 12:59:53 Is the patient allergic to Iodine/contrast media? No. 12:59:56 Was the patient premedicated? Yes 12:59:58 Is patient on blood thinner?No 13:00:03 Patient diabetic? No. 13:00:10 Snore? No 13:00:12 Sleep apnea? Yes 13:00:18 Patient pain scale 0/10 ?. 13:00:29 IV patent on arrival in left forearm with 0.9% NaCl at [facility]. 13:00:40 Lab results completed and on chart. 13:00:49 Stress Test: yes; abnormal NA 13:00:53 Right Radial & Right Groin area was prepped with chlora-prep and draped in sterile fashion 13:00:54 Alarms reviewed by R. N. 13:00:55 Sharps counted by scrub and verified by R.N. 13:00:57 Physician paged 13:02:39 1) 90+ Normal kidney functon but urine findings or structural abnormalities or genetic trait point to kidney disease. 13:02:47 Maximum allowable contrast dose (3.7 X eGFR X 0.75)250 ml. 13:02:55 Vital chart was started 13:02:57 Baseline sample Acquired. 13:08:10 Baseline sample Acquired. 13:08:13 Rhythm: sinus rhythm 13:08:15 Full Disclosure recording started 13:08:20 ----Pre-sedation anethsthesia assessment.---- 13:08:21 Previous problem with sedation/anesthesia? No ? 13:08:24 Previous problem with sedation/anesthesia? No ? 13:08:26 Deviated septum? No 13:08:27 Opens mouth fully? Yes 13:08:29 Sticks out tongue? Yes 13:08:30 Airway obstruction? No ? 13:08:31 Dentures? No ? 13:08:35 Pre procedure: right dorsailis pedis pulse 2+ Normal; easily identifiable; not easily obliterated 13:08:37 Modified Nathanael's test Ulnar < 7 seconds 13:08:43 --------ALL STOP TIME OUT------ 13:08:44 Final Timeout: patient, procedure, and site verified with staff and physician. All members of the team are in agreement. 13:08:46 Right Radial & Right Groin site verified by team. 13:08:49 Fire Safety Assessment: A--An alcohol-based skin anteseptic being used preoperatively., C--Open oxygen or nitrous oxide is being used., D--An ESU, laser, or fiber-optic light is being used. 13:08:52 Physical assessment completed. ASA score P 2 - A patient with mild systemic disease as per Jose M Huddleston MD. 13:08:56 Sedation plan: IV Moderate Sedation Medication:Versed, Fentanyl 13:09:05 Use device set Radial Dx or PCI 13:09:06 ACIST Syringe (35160) opened to sterile field. 13:09:07 Medline Cath Pack ([id number]) opened to sterile field. 13:09:09 Bag Decanter (2002S) opened to sterile field. 13:09:09 ACIST Hand Control (67884) opened to sterile field. 13:09:10 ACIST Manifold (73186) opened to sterile field. 13:09:11 MBrace Wrist Support ([id number]) opened to sterile field. 13:09:12 NEEDLE Cook 21G 4cm Radial (O38314) opened to sterile field. 13:09:15 EMERALD Guide Wire (502-781) opened to sterile field. 13:09:15 SHEATH 6FR RAIN (0032952) opened to sterile field. 13:13:14 Fentanyl 50 mcg I.V. was administered by Winnie Zuluaga RN; for sedation; Verbal order read back and verified. 13:13:19 Versed 1 mg I.V. was administered by Winnie Zuluaga RN; for sedation; Verbal order read back and verified. 13:16:39 Radial Cocktail (Verapamil 2mg/Nitro 400mcg/Heparin 1500units) 1 syringe added to field was administered by Winnie Zuluaga RN; for vasodilation; Verbal order read back and verified. 13:17:56 Zero performed for pressure channel P1 13:19:26 Procedure started. 13:19:33 Local anesthetic to right radial artery with Lidocaine 2% by Jose M Huddleston MD.INITIAL ACCESS ONLY 13:22:05 A 6 Fr Short sheath was inserted into the Right Radial artery 13:22:10 Radial Cocktail (Verapamil 2mg/Nitro 400mcg/Heparin 1500units) 1 syringe I.A. was administered by Jose M Huddleston MD; for vasodilation; Verbal order read back and verified. 13:22:13 A DIAGNOSTIC Alireza 110cm 5Fr catheter (729091) was advanced over the wire and used for Procedure. 13:22:16 Fentanyl 50 mcg I.V. was administered by Winnie Zuluaga RN; for sedation; Verbal order read back and verified. 13:22:20 Versed 1 mg I.V. was administered by Winnie Zuluaga RN; for sedation; Verbal order read back and verified. 13:23:48 Catheter removed. 13:24:14 UNABLE TO ENGAGE WITH CATHETER SWITCHING TO DIFFERENT CATHETER. 13:24:25 A DIAGNOSTIC [place] 110cm 5 Fr catheter (006180) was advanced over the wire and used for Procedure. 13:25:48 LV gram done using BETANCOURT 13:25:53 Injector settings: Ml/sec: 5, Volume: 15, 13:26:18 LV hemodynamics recorded. 13:26:44 EF : 30 % 13:28:00 LCA angiography performed. 13:28:08 Injector settings: Ml/sec: 3, Volume: 6, 13:29:22 UNABLE TO ENGAGE LCA PROCEEDING TO GROIN. 13:29:30 Catheter removed. 13:29:39 Local anesthetic to right femoral artery with Lidocaine 2% by Jose M Huddleston MD.ADDITIONAL ACCESS 13:29:50 SHEATH 5FR [place] ([id number]) opened to sterile field. 13:30:27 Use device set Femoral Dx 13:30:43 DIAGNOSTIC Multipack 5Fr catheter set ([id number]) opened to sterile field. 13:32:13 A 6 Fr Short sheath was inserted into the Right Femoral artery 13:32:28 A MULTIPACK JL 4.0 5Fr catheter was advanced over the wire and used for Procedure. 13:33:53 LCA angiography performed. 13:33:55 Injector settings: Ml/sec: 3, Volume: 6, 13:35:17 Versed 0.5 mg I.V. was administered by Winnie Zuluaga RN; for sedation; Verbal order read back and verified. 13:35:28 Catheter exchanged over wire. 13:35:36 A MULTIPACK 3DRC 5Fr catheter was advanced over the wire and used for Procedure. 13:36:03 RCA angiography performed. 13:36:06 Injector settings: Ml/sec: 3, Volume: 6, 13:36:26 ACCDominant side:Co-Dominant 13:37:05 A MULTIPACK Pigtail 5 Fr catheter was advanced over the wire and used for Procedure. 13:37:39 LV gram done using BETANCOURT 13:37:42 Injector settings: Ml/sec: 5, Volume: 15, 13:38:06 LV hemodynamics recorded. 13:38:26 EF : 30 % 13:38:39 Catheter removed. 13:38:48 ZEPHYR REGULAR TR BAND (472434) opened to sterile field. 13:38:51 EXOSEAL 5Fr (EX500) opened to sterile field. 13:40:21 Sheath removed intact; hemostasis achieved with Mechanical Compression to the Right Radial artery. 13:40:27 Sheath removed intact; hemostasis achieved with Exoseal to the Right Femoral artery. 13:40:30 Procedure ended.(Physican Out) 13:41:16 Fluoroscopy time 05.60 minutes. 13:41:20 Fluoroscopy dose: 581 mGy 13:41:20 Flurop Dose total: 581 13:41:26 Dose Area Product 08585 mGy/cm. 13:41:36 Contrast amount:Isovue 370 70ml. 13:41:39 Maximum allowable dose exceeded? No. 13:41:40 Sharps counted by scrub and verified by R.N. 13:41:43 [place] band inflated with 10cc of air. 13:41:47 Post-op/insertion site Right Femoral artery dressed using a 4 x 4 and Tegaderm. 13:41:52 Post right femoral artery:stable, soft, clean and dry 13:41:53 Post Procedure Pulses reassessed and unchanged 13:41:56 Post procedure: right dorsailis pedis pulse 2+ Normal; easily identifiable; not easily obliterated. 13:41:59 Post-procedure physical assessment completed. ASA score P 2 - A patient with mild systemic disease as per Jose M Huddleston MD. 13:42:01 Post procedure rhythm: unchanged. 13:42:04 Estimated blood loss: 5 ml 13:42:06 Post procedure instruction explained to patient.Patient verbalizes understanding. 13:42:06 Patient needs reinforcement of post procedure teaching. 13:42:38 Procedure type changed to Cath procedure, Diagnostic procedure, LHC, [facility] w/Coronaries, Sedation Charges, Moderate Sedation up to 30 minutes 13:43:05 Procedure and supply charges have been captured, reviewed, submitted and are correct. 13:43:09 Procedure Complication : No complications 13:43:11 Vital chart was stopped 13:43:17 [facility] Findings: mild to moderate CAD (<70%) 13:43:21 Operative report dictated upon procedure completion. 13:43:21 See physician's report for complete and final results. 13:43:23 Report given to Pre/Post Procedure Room. 13:43:26 Patient transfered to Pre/Post Procedure Room with Stretcher. 13:43:28 Procedure ended. 13:43:28 Full Disclosure recording stopped 13:43:49 End room use (Document Last) 13:43:59 End room use (Document Last) 13:44:23 End room use (Document Last) Device Usage Item Name Manufacture Quantity Catalog Hospital Part Current Minima l Lot# / Number Charge Number Stock Stock Serial# Code ACIST Acist 1 45709 762696 976201 932913 20 Syringe Medical (08331) Systems Inc Medline Medline 1 [id number] 655329 12431 440819 5 Cath Pack ([id number]) Bag Microtek 1 287623 59493 110918 5 Decanter Medical Inc. () ACIST Hand Acist 1 50092 819948 503300 199336 5 Control Medical (91792) Systems Inc ACIST Acist 1 14899 135892 980170 120889 5 Manifold Medical (23154) Systems Inc MBrace Advanced 1 140-0250-00 271566 57836 205210 5 Wrist Vascular Support Dynamics ([id number]) NEEDLE Cook Cook Medical 1 V35646 740323 950600 836813 5 21G 4cm Radial (L05972) EMERALD Cardinal 1 502-455 615623 795745 584351 5 Guide Wire Health (502455) SHEATH 6FR Cardinal 1 8776405 950912 6875112 961069 5 [facility] (7137951) DIAGNOSTIC Terumo 1 40-5023 531394 109110 674118 5 Alireza 110cm 5Fr catheter (909319) DIAGNOSTIC Terumo 1 40-5013 293658 990594 657607 5 [place] 110cm 5 Fr catheter (735015) DIAGNOSTIC Cardinal 1 HD5223 919378 67597 758649 30 Multipack Health 5Fr catheter set (XQ4775) MULTIPACK Cardinal 1 198679 5 JL 4.0 5Fr Health catheter MULTIPACK Cardinal 1 937128 5 3DRC 5Fr Health catheter MULTIPACK Cardinal 1 933734 5 Pigtail 5 Health Fr catheter ZEPHYR Cardinal 1 126329 332328 7913754 221344 5 REGULAR TR Health BAND (154483) EXOSEAL 5Fr Cardinal 1 EX500 459149 156197 522795 10 (EX500) Health SHEATH 5FR Terumo 1 ENJ177 557312 159673 342673 5 [place] ([id number]) Signature Audit [place] Stage Time Signature Unsigned Intra-Procedure 01/29/2020 Mattie Rojo 1:43:59 PM RT(R) Intra-Procedure 01/29/2020 Annabella 1:44:23 PM Nia RN Intra-Procedure 01/29/2020 Jose M Huddleston MD 1:44:45 PM [facility] [address] [place] [address]
[2020-01-29] MEDS ORDERED: COREG6.25 MG PO (11:36)
[2020-01-29 11:47] VITALS: BP 97/67; Ht 160 cm; Wt 89.5 kg
[2020-01-29 12:14] LABS: BASOPHILS 0.5 % (0-2); EOSINOPHILS 1.6 % (0-7); HEMOGLOBIN 12.7 g/dL (12-16); IMMATURE GRANULOCYTES 0.1 % (0-5); LYMPHOCYTES 32.7 % (15-50); MCHC 32.6 g/dL (31.0-37.0); MCV 86.1 fL (80.0-100.0); MEAN PLATELET VOLUME 9.9 fL (7.4-10.4); MONOCYTES 9.4 % (2-11); NEUTROPHILS 55.7 % (40-80); PLATELET COUNT 325 10x3/uL (130-400); RBC 4.53 10x6/uL (4.00-5.40); RDW 12.4 % (11.5-14.5); WBC 7.6 10x3/uL (4.8-10.8)
[2020-01-29 12:22] LABS: HCG SERUM NEGATIVE (NEGATIVE)
[2020-01-29 12:26] LABS: ALT (SGPT) 27 U/L (10-68); CALC OSMOLALITY 273 mosm/kg (275-300); CALCIUM 8.8 mg/dL (8.5-10.1); CARBON DIOXIDE 28.2 mmol/L (21.0-32.0); CHLORIDE - SERUM 103 mmol/L (98-107); CHOL - HDL RATIO 5.4 ratio (2.3-4.1); CHOLESTEROL, TOTAL 177 mg/dL (0-200); CREATININE - SERUM 0.6 mg/dL (0.6-1.3); GLUCOSE 108 mg/dL (74-106); HDL CHOLESTEROL 33 mg/dL (32-96); LDL CHOLESTEROL 125 mg/dL (0-100); LDL-HDL RATIO 3.8 ratio (1.5-3.5); POTASSIUM - SERUM 4.1 mmol/L (3.5-5.1); SODIUM 137 mmol/L (136-145); TRIGLYCERIDE 99 mg/dL (30-200); UREA NITROGEN 11 mg/dL (7-18); eGFR NON AFRICAN AMERICAN > 90 mL/min (90-120)
--- NOTE | 2020-01-29 13:55 | NUR ---
PT REC'D TO ROOM 5 VIA STRETCHER FROM LINER INSERTER. MONITORS ESTAB, PT DROWSY. SEE OFFICE SERVICES REPRESENTATIVE, ALARMS ON AND C/L IN REACH.
--- NOTE | 2020-01-29 14:10 | NUR ---
R GROIN SITE SOFT, C/D/I AND R Z BAND SITE C/D/I, NO S/S BLEEDING OR HEMATOMA AT EITHER SITE. PULSES PALP. VSS. PT DENIES PAIN OR NEEDS. ALARMS ON AND C/L IN REACH.
--- NOTE | 2020-01-29 14:40 | NUR ---
R GROIN AND R WRIST SITES C/D/I, NO S/S BLEEDING OR HEMATOMA. PULSES PALP. CAP REFILL WNL. VSS. PT TAKING ICE CHIPS. AT BS.
--- NOTE | 2020-01-29 14:55 | NUR ---
R GROIN SITE SOFT, NO S/S BLEEDING OR SWELLING. BEGIN ELEVATING HOB. R WRIST Z BAND SITE C/D/I, 2 CC AIR REMOVED - WILL CONT CLOSE MONITORING.
--- NOTE | 2020-01-29 15:00 | NUR ---
Shauna RIOS, C/D/I. HOB UP. SANDWICH TRAY AND WATER PROVIDED.
--- NOTE | 2020-01-29 15:19 | NUR ---
PT ATE ALL OF SANDWICH, VSS. R GROIN SITE SOFT, C/D/I. TOTAL OF 5CC AIR REMOVED FROM Z BAND. VSS. C/L IN REACH.
--- NOTE | 2020-01-29 15:30 | NUR ---
DR. JOHNSON IN TO SEE PT - UPDATED HER AND HER AT LENGTH, ALL QUESTIONS ANSWERED. R GROIN SITE SOFT, C/D/I. ALL AIR REMOVED FROM Z BAND, NO S/S BLEEDING - WILL CONT CLOSE MONITORING.
--- NOTE | 2020-01-29 15:49 | NUR ---
R GROIN SITE SOFT, C/D/I. R WRIST SITE C/D/I - Z BAND OFF AND DSG/ARM BOARD APPLIED. PIV D/C'D INTACT, DSG APPLIED. PT ALLOWED UP TO GET DRESSED AND GO TO BR INDEPENDENTLY.
--- NOTE | 2020-01-29 16:00 | NUR ---
PT D/C'D VIA WC TO PRIVATE VEHICLE. PT HAS ALL BELONGINGS AND PAPERWORK.
== END 2020-01-29 16:00 | disposition home or self-care (01) ==
LOC: D.CATH 11:08
PROVIDERS: ATTEND Internal Medicine Cardiovascular Disease
DX: I42.9 Cardiomyopathy, unspecified (principal); R94.39 Abnormal result of other cardiovascular function study; I10 Essential (primary) hypertension; R07.9 Chest pain, unspecified; I50.9 Heart failure, unspecified; G47.00 Insomnia, unspecified